=== PATIENT | female | born 1945 | race Caucasian/White ===

== ENCOUNTER → 2023-06-10 12:44 | Outpatient (REF) | payer MEDICARE, OTHER, SELFPAY | LOC: RCS 12:44 | PROVIDERS: ATTENDING PHYSICIAN Internal Medicine Cardiovascular Disease; FAMILY PHYSICIAN Internal Medicine | DX: R79.89 Other specified abnormal findings of blood chemistry (principal); R94.31 Abnormal electrocardiogram [ECG] [EKG] | CPT/HCPCS: 93017; 93350 ==

== ENCOUNTER → 2024-05-28 08:08 | Outpatient (REF) | payer MEDICARE, OTHER, SELFPAY ==
[2024-05-28 09:49] LABS: % Basophils 0.7 % (0-2); % Eosinophils 2.4 % (0-6); % Immature Granulocytes 0.7 % (0-0.5); % Lymphocytes 32.7 % (20.5-51.1); % Monocytes 12.5 % (1.7-9.3); Absolute Eosinophils 0.1 10^3/uL (0-0.7); Absolute Lymphocytes 1.8 10^3/uL (1.2-3.4); Absolute Monocytes 0.7 10^3/uL (0.1-0.6); Absolute Neutrophils 2.8 10^3/uL (1.4-6.5); Hematocrit 39.1 % (37.0-47.0); Hemoglobin 13.8 g/dL (12.0-16.0); Mean Corp Hgb Conc. 35.3 g/dL (33.0-37.0); Mean Corpuscular Hgb 32.7 pg (27.0-31.0); Mean Corpuscular Volume 92.7 fL (81.0-99.0); Mean Platelet Volume 9.6 fL (7.4-10.4); Nucleated Red Blood Cells % 0 %; Platelet Count 160 10^3/uL (130-400); Red Blood Cell Count 4.22 10^6/uL (4.20-5.40); Red Cell Dist. Width 11.7 % (11.5-14.5); White Blood Cell Count 5.5 10^3/uL (4.8-10.8)
[2024-05-28 10:05] LABS: ALT (SGPT) 17 U/L (0-35); AST (SGOT) 23 U/L (14-36); Albumin 4.3 g/dl (3.5-5.0); Alkaline Phosphatase 90 U/L (38-126); Blood Urea Nitrogen 17 mg/dl (7-17); Calcium 9.8 mg/dl (8.4-10.2); Carbon Dioxide 26 mmol/L (22-30); Chloride 108 mmol/L (98-107); Glucose 93 mg/dl (70-99); HDL Cholesterol 77 mg/dl; LDL Cholesterol, Calculated 146 mg/dl; Potassium 4.1 mmol/L (3.5-5.1); Sodium 144 mmol/L (135-145); Total Bilirubin 0.8 mg/dl (0.2-1.3); Total Cholesterol 245 mg/dl (50-199); Triglyceride 110 mg/dl (10-149); Very Low Density Lipoprotein 22 mg/dl (0-30); eGFR > 60.00
[2024-05-28 10:29] LABS: TSH Reflex To Free T4 2.35 uIU/ml (0.47-4.68)
[2024-05-28 11:01] LABS: Glycohemoglobin (HgbA1c) 5.2 % (4.0-5.6)
== END ==
LOC: HWLAB 08:08
PROVIDERS: ATTENDING PHYSICIAN Internal Medicine
DX: E78.5 Hyperlipidemia, unspecified (principal); R00.2 Palpitations; Z86.2 Personal history of diseases of the blood and blood-forming organs and certain disorders involving the immune mechanism
CPT/HCPCS: 36415; 80053; 80061; 83036; 84443; 85025

== ENCOUNTER 2024-07-20 08:56 | Emergency (ER) | payer MEDICARE, OTHER, SELFPAY ==
[2024-07-20 09:03] VITALS: BP 94/63
--- NOTE | 2024-07-20 09:15 | ED.GENMED ---
History of Present Illness
General
Chief Complaint: Heart Rate Problem
Source: patient
Exam Limitations: none
Time Seen by Provider: 07/20/24 09:15
History of Present Illness
History of Present Illness:
See MDM
Past History
Past History
ED Past Medical History: Other (Colon polyps, kidney stones, diverticulosis)
ED Past Surgical History: None; Negative Cardiac
Social History
Tobacco: Non-smoker
Alcohol: Occasional
Drug: None
Personal:
Living: with family
Employment: Retired
Family History
Family History: Other (Grandmother with colon cancer)
Phy Exam
Physical Exam
Physical Exam:
See MDM
Course
Orders/Labs/Results
Orders:
Orders
07/20/24
Electrocardiogram (*1) Stat
Comment: DONE EMR
07/20/24 08:57
ECG [Electrocardiogram (*1)] Urgent
Reason for Study: Other
Other Reason for Exam: rapid heart rate
EKG- Treatment ONCE
07/20/24 09:07
Adenosine [Adenocard] 18 mg .ROUTE .STK-MED ONE
07/20/24 09:15
Metoprolol Xl [Toprol Xl] 25 mg PO NOW STA
07/20/24 09:19
Complete Blood Count/With Diff Urgent
Comprehensive Metabolic Panel Urgent
Magnesium Urgent
TSH Reflex To Free T4 Urgent
Abnormal Lab Results
07/20/24
09:19
MCH 33.4 H pg
(27.0-31.0)
Abs Immat Gran (auto) 0.1 H 10^3/uL
(0-0.05)
Absolute Monos (auto) 1.0 H 10^3/uL
(0.1-0.6)
Immature Gran % 0.7 H %
(0-0.5)
Monocytes % 11.8 H %
(1.7-9.3)
Chloride 112 H mmol/L
(98-107)
BUN 19 H mg/dl
(7-17)
Glucose 119 H mg/dl
(70-99)
07/20/24 09:19
07/20/24 09:19
Vital Signs
Initial and Last Documented VS:
Initial Vital Signs
Temp Pulse Resp BP Pulse Ox
97.6 F 180 18 94/63 98
07/20/24 09:03 07/20/24 09:03 07/20/24 09:03 07/20/24 09:03 07/20/24 09:03
Last Documented Vital Signs
Temp Pulse Resp BP Pulse Ox
98.2 F 60 13 101/66 96
07/20/24 10:00 07/20/24 10:00 07/20/24 10:00 07/20/24 10:00 07/20/24 09:32
MDM/Problems Addressed
Differential Diagnosis Includes:
HPI and MDM Narrative:
79-year-old female presenting for evaluation of palpitations. Patient states she has been doing with the palpitations since 3:30 in the morning. EKG done in triage showing SVT. She was brought back to the treatment room immediately. Patient
states the symptoms happen frequently but they never last this long. She has never been diagnosed with A-fib or SVT. As patient was being prepared on the monitor and an IV was being placed, she broke into normal sinus rhythm on her own. Given
that this is a frequent event, will start a beta-rubi. She has follow-up with cardiology in the past. Discussed follow-up we will obtain basic blood work to rule out any metabolic abnormalities
Physical exam
General: Well appearing and non-toxic
HEENT: protecting airway
Neck: appears supple
CV: No evidence of cyanosis. Tachycardic and regular
Resp: No accessory muscle use
Abd: Non-distended
Extremities: No deformities
Neuro: alert
Psych: Normal affect
Skin: Intact
Problems Addressed including Acute and Chronic Conditions affecting care:
1. SVT
Acuity: acute
Prognosis: stable
Details: As the IV was being placed, she broke to sinus rhythm. Patient feeling better. Will obtain basic blood and start beta-rubi
Updates
Blood work without clinically relevant abnormalities. Patient feels better and was comfortable in home
Differential Diagnosis (but not limited to): SVT, A-fib, hyperthyroidism
Testing considered: Troponin but it is likely elevated due to the rate
Drug therapy (if applicable): OTC meds, please see d/c instruction regarding Rx drugs
Amount and/or Complexity of Data Reviewed
Clinical info obtained from: Patient
External data reviewed: N/A
Labs I independently reviewed (but not limited to): TSH normal
Radiology: N/A
Pulse Ox: not hypoxic
EKG independently reviewed: SVT, normal axis, no STEMI
Geographical Historian: SVT
Critical Care: N/A
Risk of Complication:
Social Determinants of health: Good social support
Discussed with other providers: N/A
Escalation of Care includes Admit/Obs: After being observed in the Emergency Department, pt stable for discharge.
Occasional wrong word or 'sound a like' substitutions may have occurred due to the inherent limitations of voice recognition software. Read the chart carefully and recognize, using context, where substitutions have occurred.
*Critical Care Note
Total Time (30-74mins, 75-104mins- exclusive of procedures): Not Applicable
ED Attending Note
-
Portions of this chart may have been created with voice recognition software.� Occasional wrong word or��sound alike� substitutions may have occurred due to the inherent limitations of voice recognition software.
Discharge Plan
Departure
Patient Disposition: Home (Routine Discharge)
Date of Disposition: 07/20/24
Time of Disposition: 10:48
Patient with high blood pressure during this ER visit?: No
Discharge Problem:
SVT (supraventricular tachycardia)
Instructions: Supraventricular tachycardia (SVT)
Prescriptions:
New
metoprolol succinate [Toprol XL] 25 mg tablet extended release 24 hr
25 mg PO DAILY Qty: 30 0RF
No Action
alprazolam [Xanax] 0.25 mg tablet
0.25 mg PO DAILYPRN PRN (Reason: anxiety) Qty: 10 0RF
Rx Instructions:
01/03/2023, patient filled this medication on 12/06/2022 for 10 tablets according to PDMP.
Theragen Tablet
1 tab PO DAILY
metronidazole 500 mg tablet
500 mg PO Q8H
Patient Comments:
01/03/2023, patient states that they have 2 tablets remaining of this medication left to take.
Rx Instructions:
01/03/2023, patient filled this medication on 12/06/2022 for 84 tablets and is instructed to take one tablet Q8H for 28 days.
Referrals:
Beckie Fowler MD [Family Provider, Internal Medicine]
Activity Restrictions/Additional Instructions:
Please return for any worsening symptoms.
You may return at any time if you have further concerns.
Please follow up with your doctor at the first available appointment, preferably this week.
Please make an appointment to see the grappler at the earliest available appointment.
Thank you for choosing [facility].
Interventions
Interventions:
ED- Cardiac Assessment Last Done: 07/20/24 09:15
ED- Pulmonary Assessment Last Done: 07/20/24 09:15
Discharge Date and Time
Print Language: GRENADIAN
[2024-07-20] MEDS: TOPROL XL 25 MG PO (09:27)
[2024-07-20 09:32] LABS: % Basophils 0.5 % (0-2); % Eosinophils 1.9 % (0-6); % Immature Granulocytes 0.7 % (0-0.5); % Lymphocytes 37.8 % (20.5-51.1); % Monocytes 11.8 % (1.7-9.3); % Neutrophils 47.3 % (42.2-75.2); Absolute Eosinophils 0.2 10^3/uL (0-0.7); Absolute Immature Granulocytes 0.1 10^3/uL (0-0.05); Absolute Lymphocytes 3.2 10^3/uL (1.2-3.4); Hematocrit 40.9 % (37.0-47.0); Hemoglobin 14.8 g/dL (12.0-16.0); Mean Corp Hgb Conc. 36.2 g/dL (33.0-37.0); Mean Corpuscular Hgb 33.4 pg (27.0-31.0); Mean Corpuscular Volume 92.3 fL (81.0-99.0); Mean Platelet Volume 9.5 fL (7.4-10.4); Nucleated Red Blood Cells % 0 %; Platelet Count 209 10^3/uL (130-400); Red Blood Cell Count 4.43 10^6/uL (4.20-5.40); Red Cell Dist. Width 12.3 % (11.5-14.5); White Blood Cell Count 8.4 10^3/uL (4.8-10.8)
[2024-07-20 09:45] LABS: ALT (SGPT) 18 U/L (0-35); AST (SGOT) 24 U/L (14-36); Albumin 4.6 g/dl (3.5-5.0); Alkaline Phosphatase 86 U/L (38-126); Blood Urea Nitrogen 19 mg/dl (7-17); Calcium 9.6 mg/dl (8.4-10.2); Carbon Dioxide 24 mmol/L (22-30); Chloride 112 mmol/L (98-107); Glucose 119 mg/dl (70-99); Magnesium 1.9 mg/dl (1.6-2.3); Potassium 4.2 mmol/L (3.5-5.1); Sodium 144 mmol/L (135-145); Total Bilirubin 0.8 mg/dl (0.2-1.3); Total Protein 7.3 g/dl (6.3-8.2); eGFR > 60.00
[2024-07-20 10:00] VITALS: BP 101/66
== END 2024-07-20 11:02 | disposition home or self-care (01) ==
LOC: EMR 08:56
PROVIDERS: EMERGENCY PHYSICIAN Student in an Organized Health Care Education/Training Program; FAMILY PHYSICIAN Internal Medicine
DX: I47.10 Supraventricular tachycardia, unspecified (principal)
CPT/HCPCS: 99284; 80053; 83735; 84443; 85025; 93005; J0153

== ENCOUNTER → 2024-09-10 13:41 | Outpatient (REF) | payer MEDICARE, OTHER, SELFPAY | LOC: HWRCS 13:41 | PROVIDERS: ATTENDING PHYSICIAN Physician Assistant; FAMILY PHYSICIAN Internal Medicine | DX: I47.10 Supraventricular tachycardia, unspecified (principal); I35.8 Other nonrheumatic aortic valve disorders; I34.0 Nonrheumatic mitral (valve) insufficiency | CPT/HCPCS: 93306 ==

== ENCOUNTER → 2025-01-05 12:58 | Outpatient (REF) | payer MEDICARE, OTHER, SELFPAY | LOC: PAVMRI 12:58 | PROVIDERS: ATTENDING PHYSICIAN Orthopaedic Surgery; FAMILY PHYSICIAN Internal Medicine | DX: M54.16 Radiculopathy, lumbar region (principal) | CPT/HCPCS: 72148 ==